=== PATIENT | female | born 1955 | race Hispanic/Latino ===

== ENCOUNTER → 2017-12-28 | Day surgery (SDC) | payer BC ==
[~2017-12-28] MED LIST: AMLODIPINE BESYL5 MG PO; FENTANYL CITRATE/PF 100MCG/2 ML INJ ONE; HYOSCYAMINE SULFATE 0.5 MG/ML AMP ONE; LIDOCAINE HCL 1% 2 ML AMP ONE; LOSARTAN-HCTZ1 EAC1; LUNESTA2 MG; MIDAZOLAM HCL 2 MG/2 ML VIAL ONE; PRAVASTATIN SOD40 MG; PROPOFOL IV EMULSION 10 MG/ML 50 ML VIAL ONE; SYNTHROID112 MCG PO
[2017-12-28 13:46] VITALS: BP 108/56
--- NOTE | 2017-12-28 14:20 | Operative Report ---
DATE OF PROCEDURE: December 28, 2017 REFERRING PHYSICIAN: Dr. Yen Hernnadez PROCEDURES PERFORMED 1. Esophagogastroduodenoscopy with biopsies. 2. Colonoscopy with polypectomy. INDICATIONS FOR EGD: Acid reflux. INDICATIONS FOR COLONOSCOPY: Colorectal cancer screening. MEDICATION: Patient was done under MAC. Please see anesthesiologist's note. PROCEDURE: With the patient in the left lateral decubitus position, the flexible fiberoptic Olympus gastroscope was introduced into the esophagus under direct visualization without any difficulty. There was some patchy erythema noted in the distal esophagus. The scope was then advanced with ease into the stomach, traversing a small hiatal hernia. Mucosa overlying the antrum and the body revealed some patchy erythema and moderate edema, and biopsies were obtained and sent to stain for H. pylori. The pylorus was of normal contour and shape. It was intubated with ease, and the scope was advanced all the way to the 2nd portion of the duodenum. The scope was then withdrawn slowly. Mucosa overlying the proximal 2nd portion and the duodenal bulb appeared to be within normal limits. The scope was then withdrawn back into the stomach and retroflexed. The mucosa overlying the fundus appeared to be within normal limits. The previously described hiatal hernia was also noted in the retroflexed position. The scope was then straightened out. It was subsequently withdrawn. Patient tolerated the procedure well. IMPRESSION 1. Distal esophagitis, mild. 2. A small hiatal hernia. 3. Gastritis, biopsied. Biopsies sent to stain for H. pylori. PLAN: Follow up histology. Initiate Protonix 40 mg 1 p.o. q.a.m. a.c. The patient was then turned around. After adequate lubrication of the anal canal, a flexible fiberoptic Olympus colonoscope was inserted into the rectum with ease and advanced all the way to the cecum. The mucosa overlying the cecum appeared to be within normal limits. An approximately 1 cm sessile polyp was noted in the proximal ascending colon, and that was removed per snare electrocautery, and the polypectomy site was hemoclipped. The rest of the ascending and transverse appeared to be within normal limits. Two polyps were snared and 2 polyps were hot biopsied from the descending colon. Diverticular disease was noted in the distal descending and the sigmoid colon. Two polyps were snared and one polyp was hot biopsied from the sigmoid colon. Three polyps were hot biopsied from the rectum. The scope was then retroflexed into the distal rectum, and small internal hemorrhoids were noted, none of which was actively bleeding. The scope was then straightened out. It was subsequently withdrawn. Patient tolerated the procedure well. IMPRESSION 1. Ascending colon polyp, approximately 1 cm, snared and site hemoclipped. 2. Descending colon polyps times 4, two snared and two hot biopsied. 3. Diverticulosis. 4. Sigmoid polyps times 3, two snared and one hot biopsied. 5. Rectal polyps times 3, hot biopsied. 6. Internal hemorrhoids, none actively bleeding. PLAN: Follow up histology. Initiate high-fiber, low-fat diet. Initiate high-fiber supplement. Patient will need a followup colonoscopy in 1 to 2 years. A total of 11 polyps were removed. Job#: [id number] cc:YEN HERNANDEZ DO
== END | disposition home or self-care (01) ==
LOC: OR 09:45
PROVIDERS: ATTEND Internal Medicine Gastroenterology
DX: Z12.11 Encounter for screening for malignant neoplasm of colon (principal); K21.0 Gastro-esophageal reflux disease with esophagitis; I10 Essential (primary) hypertension; Z68.31 Body mass index [BMI] 31.0-31.9, adult; E78.00 Pure hypercholesterolemia, unspecified; K44.9 Diaphragmatic hernia without obstruction or gangrene; K29.70 Gastritis, unspecified, without bleeding; K57.30 Diverticulosis of large intestine without perforation or abscess without bleeding; K64.8 Other hemorrhoids; K62.1 Rectal polyp; D12.4 Benign neoplasm of descending colon; D12.5 Benign neoplasm of sigmoid colon; D12.2 Benign neoplasm of ascending colon; Z01.810 Encounter for preprocedural cardiovascular examination
CPT/HCPCS: 43239; 45384; 45385; 93005; J1980; J2001; J2250; 45378

== ENCOUNTER → 2021-11-10 | Day surgery (SDC) | payer MEDICARE, BC ==
[2021-11-08 15:00] LABS: BASOPHILS % 0.4 % (0.0-1.0); EOSINOPHILS # (AUTO) 0.1 (0.0-0.4); EOSINOPHILS % 1.8 % (0.0-6.0); HEMATOCRIT 45.2 % (34.2-44.1); HEMOGLOBIN 14.6 g/dL (12.0-16.0); LYMPHOCYTES # (AUTO) 2.6 (1.0-3.2); LYMPHOCYTES % 32.3 % (18.0-39.1); MEAN CORPUSCULAR HEMOGLOBIN 29.1 pg (28-32); MEAN CORPUSCULAR HGB CONC 32.3 g/dL (31-35); MEAN CORPUSCULAR VOLUME 90.2 fL (81-99); MONOCYTES # (AUTO) 0.6 (0.2-0.8); MONOCYTES % 7.2 % (4.4-11.3); NEUTROPHILS # (AUTO) 4.6 (2.1-6.9); NEUTROPHILS % 57.8 % (38.7-80.0); PLATELET COUNT 318 x10e3/uL (140-360); RED BLOOD COUNT 5.01 x10e6/uL (3.6-5.1)
[~2021-11-10] MED LIST changes: -FENTANYL CITRATE/PF 100MCG/2 ML INJ ONE; -HYOSCYAMINE SULFATE 0.5 MG/ML AMP ONE; +HYOSCYAMINE SULFATE 0.5 MG/ML INJ ONE; +JANUVIA100 MG PO; -LIDOCAINE HCL 1% 2 ML AMP ONE; +LIDOCAINE HCL 2% LOCAL INJ 5 ML SDV VIAL INJ ONE; +LOMAIRA8 MG; +PROPOFOL IV EMULSION 10 MG/ML 20 ML VIAL ONE; -PROPOFOL IV EMULSION 10 MG/ML 50 ML VIAL ONE; +PROTONIX20 MG PO; +VERAPAMIL ER120 MG PO
[2021-11-10 16:15] VITALS: BP 135/79
== END | disposition home or self-care (01) ==
LOC: OR 10:39
PROVIDERS: ATTEND Internal Medicine Gastroenterology
DX: K29.50 Unspecified chronic gastritis without bleeding (principal); D12.0 Benign neoplasm of cecum; D12.2 Benign neoplasm of ascending colon; D12.4 Benign neoplasm of descending colon; D12.5 Benign neoplasm of sigmoid colon; K20.90 Esophagitis, unspecified without bleeding; K22.89 Other specified disease of esophagus; K44.9 Diaphragmatic hernia without obstruction or gangrene; K21.9 Gastro-esophageal reflux disease without esophagitis; K57.30 Diverticulosis of large intestine without perforation or abscess without bleeding; K64.8 Other hemorrhoids; Z71.3 Dietary counseling and surveillance; E11.9 Type 2 diabetes mellitus without complications; E03.9 Hypothyroidism, unspecified; I10 Essential (primary) hypertension; E78.5 Hyperlipidemia, unspecified; Z01.810 Encounter for preprocedural cardiovascular examination; Z01.812 Encounter for preprocedural laboratory examination; Z20.822 Contact with and (suspected) exposure to COVID-19; Z79.84 Long term (current) use of oral hypoglycemic drugs; Z79.899 Other long term (current) drug therapy; Z68.30 Body mass index [BMI] 30.0-30.9, adult; Z80.0 Family history of malignant neoplasm of digestive organs
CPT/HCPCS: 0223U; 36415 ×2; 43239; 45380; 82948; 85025; 88305; 88342; 93005; J1980; J2001; J2250; J2704; 45378; 88304; 88312

== ENCOUNTER → 2022-06-20 | Outpatient (CLI) | payer MEDICARE, BC ==
[~2022-06-20] MED LIST changes: -HYOSCYAMINE SULFATE 0.5 MG/ML INJ ONE; -LIDOCAINE HCL 2% LOCAL INJ 5 ML SDV VIAL INJ ONE; -MIDAZOLAM HCL 2 MG/2 ML VIAL ONE; -PROPOFOL IV EMULSION 10 MG/ML 20 ML VIAL ONE
== END ==
LOC: MAMMO 09:05
PROVIDERS: ATTEND Family Medicine
DX: Z12.31 Encounter for screening mammogram for malignant neoplasm of breast (principal)
CPT/HCPCS: 77067

== ENCOUNTER → 2023-11-28 | Day surgery (SDC) | payer MEDICARE, BC ==
[2023-11-21 09:01] LABS: BASOPHILS # (AUTO) 0.1 (0.0-0.1); BASOPHILS % 0.5 % (0.0-1.0); EOSINOPHILS # (AUTO) 0.3 (0.0-0.4); EOSINOPHILS % 2.9 % (0.0-6.0); HEMATOCRIT 43.4 % (34.2-44.1); HEMOGLOBIN 14.3 g/dL (12.0-16.0); LYMPHOCYTES # (AUTO) 3.2 (1.0-3.2); LYMPHOCYTES % 32.2 % (18.0-39.1); MEAN CORPUSCULAR HGB CONC 32.9 g/dL (31-35); MONOCYTES # (AUTO) 0.6 (0.2-0.8); MONOCYTES % 6.1 % (4.4-11.3); NEUTROPHILS # (AUTO) 5.7 (2.1-6.9); NEUTROPHILS % 57.5 % (38.7-80.0); PLATELET COUNT 308 x10e3/uL (140-360); RED BLOOD COUNT 4.77 x10e6/uL (3.6-5.1); RED CELL DISTRIBUTION WIDTH 12.7 % (11.7-14.4); WHITE BLOOD COUNT 9.86 x10e3/uL (4.8-10.8)
[~2023-11-28] MED LIST changes: +ASPIRIN81 MG PO; +FENTANYL CITRATE/PF 100MCG/2 ML INJ ONE; +FLOMAX0.4 MG PO; +LIDOCAINE HCL 2% LOCAL INJ 5 ML SDV VIAL INJ ONE; +LOSARTAN POTASS25 MG PO; +MAGNESIUM; +OZEMPIC2 MG/0.75
[2023-11-28] MEDS: LACTATED RINGER'S 1,000 ML ONE (13:26)
[2023-11-28 16:20] VITALS: BP 126/62; PULSE 62; RESP 14; O2SAT 99
== END | disposition home or self-care (01) ==
LOC: OR 13:11
PROVIDERS: ATTEND Internal Medicine Gastroenterology
DX: K29.50 Unspecified chronic gastritis without bleeding (principal); D12.0 Benign neoplasm of cecum; K29.60 Other gastritis without bleeding; K21.00 Gastro-esophageal reflux disease with esophagitis, without bleeding; K57.30 Diverticulosis of large intestine without perforation or abscess without bleeding; K64.8 Other hemorrhoids; K75.9 Inflammatory liver disease, unspecified; I10 Essential (primary) hypertension; E11.9 Type 2 diabetes mellitus without complications; E03.9 Hypothyroidism, unspecified; Z01.810 Encounter for preprocedural cardiovascular examination; Z01.812 Encounter for preprocedural laboratory examination; Z79.82 Long term (current) use of aspirin; Z79.85 Long-term (current) use of injectable non-insulin antidiabetic drugs; Z79.899 Other long term (current) drug therapy; Z80.0 Family history of malignant neoplasm of digestive organs
CPT/HCPCS: 36415; 43239; 45380; 85025; 88305; 88342; 93005; J2001; J2470; J3010; J7121; 45384

== ENCOUNTER → 2024-12-31 | Day surgery (SDC) | payer MEDICARE, BC ==
[2024-12-28 09:48] LABS: BASOPHILS % 0.5 % (0.0-1.0); EOSINOPHILS % 3.4 % (0.0-6.0); LYMPHOCYTES % 25.0 % (18.0-39.1); MONOCYTES % 5.9 % (4.4-11.3); NEUTROPHILS % 64.7 % (38.7-80.0); RED CELL DISTRIBUTION WIDTH 12.9 % (11.7-14.4)
[~2024-12-31] MED LIST changes: +BIOTIN PO; +COPPER2 M1 PO; +FAMOTIDINE20 MG PO; -FENTANYL CITRATE/PF 100MCG/2 ML INJ ONE; +GLYCOPYRROLATE INJ 0.2 MG/ML VIAL ONE; +LACTATED RINGER'S 1,000 ML ONE; +LOSARTAN-HCTZ1 EAC1 PO; +MAGNESIUM100 MG PO; +METOCLOPRAMIDE HCL 10 MG/2ML VIAL ONE; -OZEMPIC2 MG/0.75; +OZEMPIC2 MG/0.75 SC; +PROGESTERONE100 MG PO; +PROPOFOL IV EMULSION 10 MG/ML 20 ML VIAL ONE; +SELENIUM200 MCG PO; +TOLTERODINE TART2 MG PO; +VIT D2 PO; +ZINC PO
[2024-12-31 09:10] VITALS: BP 108/56; PULSE 65; RESP 16; TEMP 98.4; O2SAT 99
[2025-01-06 08:13] LABS: ENDOMYSIAL ANTIBODIES, IGA Negative (Negative)
[2025-01-06 12:25] LABS: TISSUE TRANSGLUTAMINASE IGA AB <2 U/mL (0-3)
== END | disposition home or self-care (01) ==
LOC: OR 05:44
PROVIDERS: ATTEND Internal Medicine Gastroenterology
DX: K20.90 Esophagitis, unspecified without bleeding (principal); K29.50 Unspecified chronic gastritis without bleeding; Z86.0100 Personal history of colon polyps, unspecified; I10 Essential (primary) hypertension; E03.9 Hypothyroidism, unspecified; E78.00 Pure hypercholesterolemia, unspecified; E11.9 Type 2 diabetes mellitus without complications; Z79.85 Long-term (current) use of injectable non-insulin antidiabetic drugs; Z01.810 Encounter for preprocedural cardiovascular examination; Z01.812 Encounter for preprocedural laboratory examination
CPT/HCPCS: 36415 ×2; 43239; 82784; 82948; 83516; 85025; 86256; 88305; 88342; 93005; J2003; J2470; J2704; J2765; J7121